=== PATIENT | male | born 1970 | race Caucasian/White ===

== ENCOUNTER 2017-01-19 10:36 | Day surgery (SDC) | payer BC ==
[~2017-01-19] VITALS: Ht 188 cm; Wt 77.3 kg
[~2017-01-19 10:36] MED LIST: AMBIEN10 MG PO; BUPROPION HCL150 M2 PO; CARAFATE1 GM PO; CATAPRES0.1 MG PO; CELEBREX200 MG PO; ENDOCET 7.5-321 EACH PO; IMITREX100 MG PO; INDERAL60 MG PO; NEURONTIN100 MG PO; NEXIUM40 MG PO; TRAZODONE HCL50 MG PO
== END 2017-01-19 11:56 | disposition home or self-care (01) ==
LOC: PAIN 10:36 → SDC 11:00 → PAIN 11:00
DX: M47.26 Other spondylosis with radiculopathy, lumbar region (principal); M51.06 Intervertebral disc disorders with myelopathy, lumbar region; I10 Essential (primary) hypertension; F41.8 Other specified anxiety disorders; K21.9 Gastro-esophageal reflux disease without esophagitis
CPT/HCPCS: J1030; J2250; J3010; S0020

== ENCOUNTER 2017-01-26 10:20 | Day surgery (SDC) | payer BC ==
[~2017-01-26] VITALS: Ht 188 cm; Wt 78.5 kg
== END 2017-01-26 12:23 | disposition home or self-care (01) ==
LOC: PAIN 10:20 → SDC 11:00 → PAIN 12:23
DX: M47.26 Other spondylosis with radiculopathy, lumbar region (principal); M51.06 Intervertebral disc disorders with myelopathy, lumbar region; I10 Essential (primary) hypertension; K21.9 Gastro-esophageal reflux disease without esophagitis; Z87.891 Personal history of nicotine dependence; F41.8 Other specified anxiety disorders
CPT/HCPCS: J1030; J2250; J2405; J3010; S0020

== ENCOUNTER 2017-04-25 12:49 | Day surgery (SDC) | payer BC ==
[~2017-04-25] VITALS: Ht 190.5 cm; Wt 77.1 kg
== END 2017-04-25 14:30 | disposition home or self-care (01) ==
LOC: PAIN 12:49 → SDC 13:15 → PAIN 13:15
DX: M53.3 Sacrococcygeal disorders, not elsewhere classified (principal); M46.1 Sacroiliitis, not elsewhere classified; M47.26 Other spondylosis with radiculopathy, lumbar region; M51.06 Intervertebral disc disorders with myelopathy, lumbar region; I10 Essential (primary) hypertension; K21.9 Gastro-esophageal reflux disease without esophagitis; F41.8 Other specified anxiety disorders; Z79.891 Long term (current) use of opiate analgesic
CPT/HCPCS: J1030; J1885; J2250; J3010; S0020